=== PATIENT | female | born 1950 | race Caucasian/White ===

== ENCOUNTER → 2016-11-07 14:31 | Outpatient (CLI) | payer MEDICARE ==
[2015-03-15 13:44] VITALS: BMI 24.2
[~2016-11-07 14:31] MED LIST: AMBIEN10 MG PO; ATROVENT 0.02%2.5 ML UPD; BONIVA150 MG PO; CLARITIN 10 MG10 MG PO; FLUTICASONE PRO16 GM NASAL; KADIAN100 MG PO; KADIAN50 MG PO; LOVENOX40 MG/0.4 SC; MIRALAX17 GM PO; MORPHINE IMMEDI15 MG PO; PROTONIX40 MG PO; PULMICORT0.5 MG/21 INH; ROXICODONE15 MG PO; TUMS500 MG PO; VALIUM10 MG PO; VOLTAREN100 GM TOPICAL; XANAX1 MG PO; XOPENEX 0.0.63 MG/3 UPD; ZITHROMAX250 MG PO; ZOSYN 2.25 GM2.25 G1 IV
== END | disposition home or self-care (01) ==
LOC: D.MRI 14:30
DX: M54.5 Low back pain (principal)

== ENCOUNTER 2017-04-02 16:53 | Emergency (ER) | payer MEDICARE ==
[2015-03-15 13:44] VITALS: BMI 24.2
[2017-04-02 18:41] LABS: APPEARANCE CLEAR (CLEAR); BILIRUBIN NEGATIVE (NEGATIVE); COLOR YELLOW (YELLOW); GLUCOSE NEGATIVE (NEGATIVE); KETONE NEGATIVE (NEGATIVE); NITRITE NEGATIVE (NEGATIVE); PROTEIN NEGATIVE (NEGATIVE); UROBILINOGEN NORMAL (NORMAL)
[2017-04-02 18:42] LABS: BASOPHILS 0.2 % (0-2); EOSINOPHILS 0.8 % (0-7); HEMATOCRIT 43.2 % (36.0-48.0); HEMOGLOBIN 14.3 g/dL (12-16); IMMATURE GRANULOCYTES 0.4 % (0-5); LYMPHOCYTES 25.2 % (15-50); MCH 30.2 pg (26.0-34.0); MCHC 33.1 g/dL (31.0-37.0); MCV 91.3 fL (80.0-100.0); MEAN PLATELET VOLUME 10.3 fL (7.4-10.4); MONOCYTES 7.1 % (2-11); NEUTROPHILS 66.3 % (40-80); RBC 4.73 10x6/uL (4.00-5.40); RDW 12.6 % (11.5-14.5); WBC 9.7 10x3/uL (4.8-10.8)
[2017-04-02 18:45] LABS: PLATELET COUNT 242 10x3/uL (130-400)
== END 2017-04-02 20:14 | disposition home or self-care (01) ==
LOC: D.ER 16:53
PROVIDERS: Emergency Medicine
DX: S29.012A Strain of muscle and tendon of back wall of thorax, initial encounter (principal); V43.52XA Car driver injured in collision with other type car in traffic accident, initial encounter; Y93.89 Activity, other specified; Y92.410 Unspecified street and highway as the place of occurrence of the external cause; S16.1XXA Strain of muscle, fascia and tendon at neck level, initial encounter; S39.012A Strain of muscle, fascia and tendon of lower back, initial encounter; F17.200 Nicotine dependence, unspecified, uncomplicated

== ENCOUNTER → 2018-04-09 08:57 | Outpatient (CLI) | payer MEDICARE ==
[2015-03-15 13:44] VITALS: BMI 24.2
== END | disposition home or self-care (01) ==
LOC: D.MRI 04-08 15:00
DX: R10.13 Epigastric pain (principal); R10.30 Lower abdominal pain, unspecified; R93.89 Abnormal findings on diagnostic imaging of other specified body structures; R11.0 Nausea

== ENCOUNTER 2018-06-16 05:16 | Day surgery (SDC) | payer MEDICARE ==
[~2018-06-16] VITALS: Ht 152.4 cm; Wt 60.8 kg
[~2018-06-16 05:16] MED LIST changes: +BUTRANS1 EAC2 TRANSDERM; +CARAFATE1 G PO
[2018-06-16 05:44] LABS: HEMATOCRIT 40.7 % (36.0-48.0); HEMOGLOBIN 13.8 g/dL (12-16); MCH 30.4 pg (26.0-34.0); MCHC 33.9 g/dL (31.0-37.0); MCV 89.6 fL (80.0-100.0); MEAN PLATELET VOLUME 9.8 fL (7.4-10.4); RBC 4.54 10x6/uL (4.00-5.40); RDW 13.7 % (11.5-14.5); WBC 5.8 10x3/uL (4.8-10.8)
[2018-06-16 06:40] VITALS: BP 131/70; Ht 152.4 cm; Wt 60.8 kg
--- NOTE | 2018-06-16 11:10 | NUR ---
1105 ASSISSTED PT UP TO BR, AMBULATED WELL WITHOUT PROBLEMS. DRESSING CDI. VOIDS QS.
--- NOTE | 2018-07-08 09:17 | OP ---
PATIENT NAME: DANIELA CHUNG MEDICAL RECORD: [id number] :54 LOCATION:[facility] ADMISSION DATE: SURGEON: GRANT GIRARD MD DATE OF OPERATION: 06/16/2018 DATE OF SERVICE: 06/16/2018 PREOPERATIVE DIAGNOSES: Lumbar spinal stenosis of L4-L5, right, with left L4-L5 foraminal stenosis. PRIMARY CARE DOCTOR: Dr. Ethan Jackson. SURGEON: Grant Girard MD DESCRIPTION AND TECHNIQUE: After induction of general endotracheal anesthesia, the patient was rolled prone on Aramis frame. Lumbar spine was prepped and draped in the usual sterile fashion. Fluoroscopic x-ray and spinal needle localized the L4-L5 interspace on the right side. A stab incision was created with a #11 blade. Series of dilators were used to advance a METRx retractor at the L4-L5 interspace on the right side. Level was confirmed with fluoroscopic x-ray. A microscope and Midas-Justin drill were used to perform a laminotomy, medial facetectomy and foraminotomy at L4-L5 on the right. Hypertrophied ligamentum flavum was removed with Cloward rongeurs. Following this, the L4-L5 nerve roots were decompressed well on the right side. The METRx retractor was tilted to the opposite side. The spinous process at L4 was undermined with a Midas-Justin drill. Hypertrophied ligamentum flavum was removed within the central canal as well as the right neural foramen at L4-L5. Following this, L4 and L5 nerve roots were decompressed well on both sides. Meticulous hemostasis was maintained throughout the wound. The wound was irrigated with copious amounts of Ancef irrigant solution. The retractor was removed and the fascia was closed with 2-0 Vicryl suture. The skin was closed with Steri-Strips and benzoin. A sterile dressing was applied to the wound. The patient was awakened in good condition and taken to recovery. All counts were reported as correct. Estimated blood loss was minimal. TRANSINT:[id number] Voice Confirmation ID: [id number] DOCUMENT ID: [id number] GRANT GIRARD MD at 0917 CC: [id number] DICTATION DATE: 07/03/18 1354 CORRECTIVE THERAPY AIDE: 07/03/18 2201 [facility] 06/16/18 [facility] [address] [place] [address]
== END 2018-06-16 11:48 | disposition home or self-care (01) ==
LOC: D.OPS 05:16 → D.PAN 07:30 → D.OPS 11:48
PROVIDERS: Anesthesiology
DX: M54.16 Radiculopathy, lumbar region (principal); M48.061 Spinal stenosis, lumbar region without neurogenic claudication